=== PATIENT | female | born 1965 | race Caucasian/White ===

== ENCOUNTER 2017-09-13 09:06 | Emergency (ER) | payer BC ==
[2017-09-13 10:35] VITALS: BP 146/90
--- NOTE | 2017-09-13 11:00 | UC ---
Respiratory Complaint HPI - HPI Summary HPI Summary: C/O cough, congestion, headache for the last 3 days. Sinus headaches. - History of Current Complaint Chief Complaint: UCRespiratory Stated Complaint: CHEST CONGESTION COUGH Time Seen by Provider: 09/13/17 10:36 Hx Obtained From: Patient Hx Last Menstrual Period: 08/30/17 ?: No Onset/Duration: Sudden Onset, Lasting Days - 3, Worse Since - onset Severity Initially: Mild Severity Currently: Moderate Character: Cough: Nonproductive Alleviating Factors: Nothing Associated Signs And Symptoms: Positive: Dyspnea, URI, Nasal Congestion, Hoarseness, Sinus Discomfort. Negative: Pleuritic Chest Pain - Allergies/Home Medications Allergies/Adverse Reactions: Allergies Allergy/AdvReac Type Severity Reaction Status Date / Time No Known Allergies Allergy Verified 09/13/17 10:35 Home Medications: Home Medications DULoxetine DR CAP* [Cymbalta CAP*] 60 mg PO DAILY 09/13/17 [History Confirmed ] Dexmethylphenidate HCl [Focalin Xr] 30 mg PO DAILY 09/13/17 [History Confirmed 09/13/17] Zolpidem Tartrate [Ambien] 10 mg PO BEDTIME 09/13/17 [History Confirmed 09/13/17 ] PMH/Surg Hx/FS Hx/Imm Hx Psychological History: Anxiety, Depression - Surgical History Surgical History: None - Family History Known Family History: Positive: Hypertension, Diabetes Negative: Cardiac Disease - Social History Occupation: Employed Full-time Lives: With Family Alcohol Use: Occasionally Substance Use Type: None Smoking Status (MU): Never Smoked Tobacco - Immunization History Most Recent Influenza Vaccination: 6 weeks ago Review of Systems Constitutional: Fatigue ENT: Sore Throat, Nasal Discharge, Sinus Pain/Tenderness Respiratory: Shortness Of Breath, Cough Is Patient Immunocompromised?: No All Other Systems Reviewed And Are Negative: Yes Physical Exam Triage Information Reviewed: Yes Appearance: No Pain Distress, Well-Nourished, Ill-Appearing Vital Signs: Initial Vital Signs Temp 97.5 F 09/13/17 10:27 Pulse 90 09/13/17 10:27 Resp 16 09/13/17 10:27 BP 146/90 09/13/17 10:27 Pulse Ox 100 09/13/17 10:27 Vital Signs Reviewed: Yes Eyes: Positive: Conjunctiva Clear ENT: Positive: Pharynx normal, Nasal congestion, TMs normal Neck exam: Normal Respiratory: Positive: Lungs clear, Wheezing - expiratory wheezing with cough Cardiovascular Exam: Normal Musculoskeletal Exam: Normal Neurological Exam: Normal Psychological Exam: Normal Skin Exam: Normal UC Diagnostic Evaluation - Laboratory O2 Sat by Pulse Oximetry: 100 Respiratory Course/Dx - Differential Dx/Diagnosis Differential Diagnosis/HQI/PQRI: Asthma, Lower Resp Infection, Sinusitis Provider Diagnoses: Acute URI. Acute sinusitis. Acute bronchospasm Discharge - Discharge Plan Condition: Stable Disposition: HOME Prescriptions: Albuterol HFA INHALER* [Ventolin HFA Inhaler*] 2 puff INH Q4H PRN #1 mdi PRN Reason: Wheezing Amoxicillin PO (*) [Amoxicillin 875 MG (*)] 875 mg PO BID #20 tab predniSONE TAB* [Deltasone TAB*] 20 mg PO DAILY #18 tab Patient Education Materials: Upper Respiratory Infection (ED), Sinusitis (ED), Amoxicillin (By mouth), Bronchospasm (ED), Prednisone (By mouth) Referrals: John Gilmore MD [Primary Care Provider] - Additional Instructions: NASAL SPRAYS AND DROPS: Afrin in the PUMP/ MIST bottle (Get generic 12 hours nasal decongestant spray). Tilt your head down and look at the floor while doing a strong sniff with the spray. Decongestant nasal sprays and drops often give dramatic relief from congestion. They are often recommended for patients with sinus infection to assist with sinus drainage. Persons with high blood pressure should consult the doctor before using these nasal sprays. Afrin and Carlos-Synephrine are common [id number] preparations. They should not be used for more than five days, as "rebound" congestion can occur - - the congestion flares as the drug wears off. A way of dealing with this rebound congestion problem is to medicate only one nostril each time, allowing the other nostril to recover from the medicine' s effects. When you no longer need the drug during the day, spray only one nostril each night. This helps you sleep well without severe rebound congestion. Call the doctor if you develop severe headache, palpitations, or chest pain.
== END 2017-09-13 11:30 | disposition home or self-care (01) ==
LOC: UCCORT 09:06
DX: J06.9 Acute upper respiratory infection, unspecified (principal); J01.90 Acute sinusitis, unspecified; J98.01 Acute bronchospasm; F41.9 Anxiety disorder, unspecified; F32.9 Major depressive disorder, single episode, unspecified
CPT/HCPCS: 99212; G0463

== ENCOUNTER 2019-07-17 20:59 | Emergency (ER) | payer BC ==
[2019-07-17 21:11] VITALS: BP 126/81
--- NOTE | 2019-07-17 21:15 | UC ---
Lower Extremity/Ankle HPI - HPI Summary HPI Summary: Patient was walking earlier tonight and stubbed her toe on a rock, toe is extended and she cannot flex it. - History of Current Complaint Stated Complaint: RIGHT GREAT TOE INJURY Time Seen by Provider: 07/17/19 21:01 Hx Obtained From: Patient Hx Last Menstrual Period: 08/30/17 ?: No Onset/Duration: Sudden Onset, Lasting Hours Severity Initially: Mild Severity Currently: Mild Aggravating Factor(s): Standing, Ambulation Alleviating Factor(s): Nothing Able to Bear Weight: Yes - Allergies/Home Medications Allergies/Adverse Reactions: Allergies Allergy/AdvReac Type Severity Reaction Status Date / Time No Known Allergies Allergy Verified 07/17/19 21:11 Home Medications: Home Medications Nadolol TAB* [Corgard TAB*] 20 mg PO BID 07/17/19 [History Confirmed 07/17/19] PMH/Surg Hx/FS Hx/Imm Hx Previously Healthy: Yes - Surgical History Surgical History: None - Family History Known Family History: Positive: Hypertension, Diabetes Negative: Cardiac Disease - Social History Alcohol Use: Occasionally Substance Use Type: None Smoking Status (MU): Never Smoked Tobacco - Immunization History Most Recent Influenza Vaccination: 6 weeks ago Review of Systems All Other Systems Reviewed And Are Negative: Yes Musculoskeletal: Positive: Arthralgia, Decreased ROM, Myalgia Is Patient Immunocompromised?: No Physical Exam Triage Information Reviewed: Yes Appearance: Well-Appearing, Well-Nourished, Pain Distress Vital Signs Reviewed: Yes Eye Exam: Normal ENT Exam: Normal Dental Exam: Normal Neck exam: Normal Respiratory Exam: Normal Respiratory: Positive: Chest non-tender, Lungs clear, Normal breath sounds Cardiovascular Exam: Normal Cardiovascular: Positive: RRR, No Murmur, Pulses Normal Bowel Sounds: Positive: Present Musculoskeletal: Positive: Strength Intact, ROM Limited @ - in right great toe, Edema @ - miled Neurological Exam: Normal Psychological Exam: Normal Skin Exam: Normal Lower Extremity Course/Dx - Course Course Of Treatment: hx obtained, exam performed, meds reviewed, xray obtained. digital block performed and reduction of the toe completed without difficulty - Differential Dx/Diagnosis Differential Diagnosis/HQI/PQRI: Contusion, Dislocation, Fracture (Closed), Sprain, Strain Provider Diagnosis: Dislocation of interphalangeal joint of right great toe, initial encounter Discharge ED - Sign-Out/Discharge Documenting (check all that apply): Patient Departure All imaging exams completed and their final reports reviewed: No - Discharge Plan Condition: Stable Disposition: HOME Referrals: John Gilmore MD [Primary Care Provider] - Additional Instructions: 1. ice and use ibuprofen for pain and swelling 2. expect more discoloration tomorrow. 3. FOllow up as needed. - Billing Disposition and Condition Condition: STABLE Disposition: Home
[2019-07-17] MEDS ORDERED: Lidocaine 2% PF * 5 ML VIAL INJ ONE (21:26)
--- NOTE | 2019-07-17 21:52 | UC ---
Course/Dx - Diagnoses Provider Diagnoses: Dislocation of interphalangeal joint of right great toe, initial encounter Discharge ED - Sign-Out/Discharge Documenting (check all that apply): Patient Departure All imaging exams completed and their final reports reviewed: No - Discharge Plan Condition: Stable Disposition: HOME Referrals: John Gilmore MD [Primary Care Provider] - Additional Instructions: 1. ice and use ibuprofen for pain and swelling 2. expect more discoloration tomorrow. 3. FOllow up as needed. - Billing Disposition and Condition Condition: STABLE Disposition: Home
--- NOTE | 2019-07-18 12:31 | UC ---
- Progress Note Progress Note: Final radiologist reading for right great toe x-ray from July 17, 2019 comes back as the distal phalanx dislocation. Provider's interpretation of the same date is the same therefore there is no discrepancy. Course/Dx - Diagnoses Provider Diagnoses: Dislocation of interphalangeal joint of right great toe, initial encounter Discharge ED - Sign-Out/Discharge Documenting (check all that apply): Patient Departure All imaging exams completed and their final reports reviewed: Yes - Discharge Plan Condition: Stable Disposition: HOME Referrals: John Gilmore MD [Primary Care Provider] - Additional Instructions: 1. ice and use ibuprofen for pain and swelling 2. expect more discoloration tomorrow. 3. FOllow up as needed. - Billing Disposition and Condition Condition: STABLE Disposition: Home
== END 2019-07-17 21:49 | disposition home or self-care (01) ==
LOC: UCCORT 20:59
DX: S93.111A Dislocation of interphalangeal joint of right great toe, initial encounter (principal); W22.8XXA Striking against or struck by other objects, initial encounter; Y93.01 Activity, walking, marching and hiking; Y92.9 Unspecified place or not applicable
CPT/HCPCS: 28630; 28665; 99211; G0463

== ENCOUNTER 2019-09-04 13:10 | Emergency (ER) | payer BC ==
[2019-09-04 15:30] VITALS: BP 112/83
[2019-09-04] MEDS ORDERED: Ondansetron ODT TAB* 4 MG PO ONE (15:44)
--- NOTE | 2019-09-04 16:06 | UC ---
Abdominal Pain Female HPI - HPI Summary HPI Summary: Pt presents with c/o nausea, vomiting, body aches, diarrhea, ANAYA X 2-3 days. Pt states that she is voiding and is able to keep fluids down but vomits when attempts to eat solid food. - History of Current Complaint Chief Complaint: UCGeneralIllness Stated Complaint: BODY ACHES,VOMITTING,DIARRHEA,LOW ENERGY Time Seen by Provider: 09/04/19 15:31 Hx Obtained From: Patient Hx Last Menstrual Period: 08/30/17 ?: No Onset/Duration: Sudden Onset, Lasting Days, Still Present Timing: Constant Severity Initially: Moderate Severity Currently: Moderate Pain Intensity: 3 Pain Scale Used: 0-10 Numeric Location: Diffuse Radiates: No Character: Colicy, Dull Aggravating Factor(s): Food Alleviating Factor(s): NPO Associated Signs and Symptoms: Positive: Nausea, Vomiting, Diarrhea - Risk Factors Ectopic Risk Factor: Negative Ovarian Torsion Risk Factor: Negative Allergies/Adverse Reactions: Allergies Allergy/AdvReac Type Severity Reaction Status Date / Time No Known Allergies Allergy Verified 09/04/19 15:28 PMH/Surg Hx/FS Hx/Imm Hx Previously Healthy: Yes - Surgical History Surgical History: None - Family History Known Family History: Positive: Hypertension, Diabetes Negative: Cardiac Disease - Social History Occupation: Employed Full-time Lives: With Family Alcohol Use: Occasionally Substance Use Type: None Smoking Status (MU): Never Smoked Tobacco Have You Smoked in the Last Year: No - Immunization History Most Recent Influenza Vaccination: 6 weeks ago Vaccination Up to Date: Yes Review of Systems All Other Systems Reviewed And Are Negative: Yes Constitutional: Positive: Chills, Fatigue Skin: Positive: Negative Eyes: Positive: Negative ENT: Positive: Negative Respiratory: Positive: Negative Cardiovascular: Positive: Negative Gastrointestinal: Positive: Abdominal Pain, Vomiting, Diarrhea, Nausea Genitourinary: Positive: Negative Motor: Positive: Negative Neurovascular: Positive: Negative Musculoskeletal: Positive: Negative Neurological: Positive: Negative Psychological: Positive: Negative Is Patient Immunocompromised?: No Physical Exam Triage Information Reviewed: Yes Appearance: Ill-Appearing Vital Signs: Initial Vital Signs Temp 96.0 F 09/04/19 15:24 Pulse 76 09/04/19 15:24 Resp 16 09/04/19 15:24 BP 112/83 09/04/19 15:24 Pulse Ox 99 09/04/19 15:24 Vital Signs Reviewed: Yes Eye Exam: Normal ENT Exam: Normal Dental Exam: Normal Neck exam: Normal Respiratory Exam: Normal Cardiovascular Exam: Normal Abdomen Description: Positive: Nontender Musculoskeletal Exam: Normal Neurological Exam: Normal Psychological Exam: Normal Skin Exam: Normal Abd Pain Female Course/Dx - Differential Dx/Diagnosis Differential Diagnosis: Urinary Tract Infection Provider Diagnosis: Gastroenteritis Discharge ED - Sign-Out/Discharge Documenting (check all that apply): Patient Departure All imaging exams completed and their final reports reviewed: No Studies - Discharge Plan Condition: Stable Disposition: HOME Prescriptions: Ondansetron HCl [Zofran] 4 mg PO Q8H PRN #15 tablet PRN Reason: Nausea Patient Education Materials: Loperamide (By mouth), Gastroenteritis (ED) Referrals: John Gilmore MD [Primary Care Provider] - If Needed - Billing Disposition and Condition Condition: STABLE Disposition: Home
== END 2019-09-04 15:53 | disposition home or self-care (01) ==
LOC: UCCORT 13:10
DX: K52.9 Noninfective gastroenteritis and colitis, unspecified (principal); R53.83 Other fatigue
CPT/HCPCS: 99212; A9270-GY; G0463

== ENCOUNTER 2019-09-05 08:44 | Emergency (ER) | payer BC ==
[2019-09-05 08:59] VITALS: BP 99/56
--- NOTE | 2019-09-05 09:31 | UC ---
Throat Pain/Nasal Ran HPI - HPI Summary HPI Summary: Pt presents with sudden onset of ST, body aches and fatigue that began last night into this morning. Pt was seen here yesterday for c/o nausea, vomiting and diarrhea. Pt states that the c/o nausea, vomiting and diarrhea have resolved and now she has new symptoms of ST, and body aches. - History of Current Complaint Chief Complaint: UCGeneralIllness Stated Complaint: ST Time Seen by Provider: 09/05/19 08:46 Hx Obtained From: Patient Hx Last Menstrual Period: October 2017 ?: No Onset/Duration: Sudden Onset, Lasting Hours Severity: Mild Pain Intensity: 3 Cough: None Associated Signs & Symptoms: Positive: Negative - Epiglottits Risk Factors Epiglottis Risk Factors: Sudden Onset - Allergies/Home Medications Allergies/Adverse Reactions: Allergies Allergy/AdvReac Type Severity Reaction Status Date / Time No Known Allergies Allergy Verified 09/05/19 08:54 PMH/Surg Hx/FS Hx/Imm Hx Previously Healthy: Yes - Surgical History Surgical History: None - Family History Known Family History: Positive: Hypertension, Diabetes Negative: Cardiac Disease - Social History Occupation: Employed Full-time Lives: With Family Alcohol Use: Occasionally Substance Use Type: None Smoking Status (MU): Never Smoked Tobacco Have You Smoked in the Last Year: No - Immunization History Most Recent Influenza Vaccination: 6 weeks ago Vaccination Up to Date: Yes Review of Systems All Other Systems Reviewed And Are Negative: Yes Constitutional: Positive: Chills, Fatigue Skin: Positive: Negative Eyes: Positive: Negative ENT: Positive: Sore Throat Respiratory: Positive: Negative Cardiovascular: Positive: Negative Gastrointestinal: Positive: Negative Genitourinary: Positive: Negative Motor: Positive: Negative Neurovascular: Positive: Negative Musculoskeletal: Positive: Myalgia Neurological: Positive: Negative Psychological: Positive: Negative Is Patient Immunocompromised?: No Physical Exam Triage Information Reviewed: Yes Appearance: Ill-Appearing Vital Signs: Initial Vital Signs Temp 97.3 F 09/05/19 08:54 Pulse 73 09/05/19 08:54 Resp 16 09/05/19 08:54 BP 99/56 09/05/19 08:54 Pulse Ox 98 09/05/19 08:54 Vital Signs Reviewed: Yes Eye Exam: Normal ENT: Positive: Pharyngeal erythema Dental Exam: Normal Neck exam: Normal Respiratory Exam: Normal Cardiovascular Exam: Normal Abdomen Description: Positive: Nontender Bowel Sounds: Positive: Present Musculoskeletal Exam: Normal Neurological Exam: Normal Psychological Exam: Normal Skin Exam: Normal Throat Pain/Nasal Course/Dx - Differential Dx/Diagnosis Differential Diagnosis/HQI/PQRI: Influenza, Pharyngitis Provider Diagnosis: Viral syndrome Discharge ED - Sign-Out/Discharge Documenting (check all that apply): Patient Departure All imaging exams completed and their final reports reviewed: No Studies - Discharge Plan Condition: Stable Disposition: HOME Patient Education Materials: Viral Syndrome (ED) Referrals: John Gilmore MD [Primary Care Provider] - If Needed Additional Instructions: Please follow up with your PCP as needed. If your symptoms worsen, please seek care at the closest emergency room. - Billing Disposition and Condition Condition: STABLE Disposition: Home
== END 2019-09-05 09:29 | disposition home or self-care (01) ==
LOC: UCCORT 08:44
DX: B34.9 Viral infection, unspecified (principal)
CPT/HCPCS: 87651; 99211; G0463